=== PATIENT | female | born 1960 | race Caucasian/White ===

== ENCOUNTER 2017-05-26 14:46 | Emergency (ER) | payer OTHER, SELFPAY ==
[~2017-05-26] VITALS: Ht 160 cm; Wt 160.4 kg
[2017-05-26] MEDS ORDERED: IBUPROFEN 200 MG TABLET PO ONE (16:00)
[2017-05-26 16:40] LABS: HEMATOCRIT 41.9 % (34.6-47.8); HEMOGLOBIN 14.6 g/dL (11.7-16.4); WHITE BLOOD COUNT 14.5 x10^3/uL (3.4-10)
[2017-05-26 16:48] LABS: RAPID INFLUENZA A Negative (Negative); RAPID INFLUENZA B Negative (Negative)
[2017-05-26 16:52] LABS: BLOOD UREA NITROGEN 8 mg/dL (7-18)
[2017-05-26 17:21] VITALS: BP 121/68
[2017-05-26 18:06] LABS: IS PT STATUS REG ER OR PRE ER? YES
== END 2017-05-26 18:41 | disposition home or self-care (01) ==
LOC: ED 18:35
DX: J06.9 Acute upper respiratory infection, unspecified (principal); J20.9 Acute bronchitis, unspecified
CPT/HCPCS: 36415; 71010; 80048; 82040; 84484; 85025; 87400; 93005; 99285

== ENCOUNTER 2019-10-19 11:14 | Emergency (ER) | payer SELFPAY ==
[~2019-10-19] VITALS: Ht 160 cm; Wt 82.5 kg
--- NOTE | 2019-10-19 11:29 | NUR ---
PT PRESENTED TO ED D/T LLE REDNESS, PAIN, AND SWELLING THAT STARTED THE BEGINNING OF THIS WEEK. PT STATES UNABLE TO GET INTO PCP AND WAS ENCOURAGED TO COME TO ED FOR US.
--- NOTE | 2019-10-19 11:50 | NUR ---
US AT BEDSIDE.
--- NOTE | 2019-10-19 12:06 | NUR ---
Task RN: Pt still recieving US study.
--- NOTE | 2019-10-19 13:05 | NUR ---
PT DC HOME IN A STABLE CONDITION. RN WRAPPED PT'S LLE AND TAUGHT PT HOW TO USE CRUTHCHES. DC INSTRUCTIONS WERE DISCUSSED WITH PT. PT VERBALIZED UNDERSTANDING. NO FURTHER QUESTIONS OR CONCERNS EXPRESSED AT THAT TIME. PT WHEELED OUT TO PT'S CAR VIA [employer] BY [employer].
[2019-10-19 13:06] VITALS: BP 125/76
== END 2019-10-19 13:07 | disposition home or self-care (01) ==
LOC: ED 12:26
DX: S93.492A Sprain of other ligament of left ankle, initial encounter (principal); S80.12XA Contusion of left lower leg, initial encounter; F17.200 Nicotine dependence, unspecified, uncomplicated; X58.XXXA Exposure to other specified factors, initial encounter; Y93.89 Activity, other specified; Y92.89 Other specified places as the place of occurrence of the external cause; Y99.8 Other external cause status
CPT/HCPCS: 99284

== ENCOUNTER 2020-11-23 09:33 | Emergency (ER) | payer SELFPAY ==
[~2020-11-23] VITALS: Ht 160 cm; Wt 81.5 kg
--- NOTE | 2020-11-23 11:32 | NUR ---
PIN SORTER AND BAGGER: CALLED FOR ROOM, NO ANSWER
--- NOTE | 2020-11-23 11:43 | NUR ---
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
--- NOTE | 2020-11-23 12:58 | NUR ---
PT IN NO ACUTE DISTRESS. NO IV TO DC. REVIEWED DC INSTRUCTIONS WITH PT. UNDERSTANDING VERBALIZED. PT LEFT AMB, GAIT STEADY.
[2020-11-23 12:59] VITALS: BP 184/85
== END 2020-11-23 13:01 | disposition home or self-care (01) ==
LOC: ED 12:53
DX: H05.232 Hemorrhage of left orbit (principal); Y04.8XXA Assault by other bodily force, initial encounter; Y93.89 Activity, other specified; Y92.89 Other specified places as the place of occurrence of the external cause; Y99.8 Other external cause status
CPT/HCPCS: 70486; 99284